=== PATIENT | male | born 1960 | race Caucasian/White ===

== ENCOUNTER 2023-04-08 10:18 | Emergency (ER) | payer MEDICARE, MEDICAID ==
[~2023-04-08] VITALS: Ht 172.7 cm; Wt 86.0 kg
[~2023-04-08 10:18] MED LIST: AMLO5TAB16 PO
[2023-04-08 10:23] VITALS: TEMP 98.1
--- NOTE | 2023-04-08 10:32 | NUR ---
PT STATES HE IS HERE FOR NERVE PAIN AND DOES NOT HAVE CARE AT HOME, PT STATES DIFFICULTY HEARING AND UNDSTANDING CAUSING FRUSTRTATION
--- NOTE | 2023-04-08 10:36 | NUR ---
PT STATES TRIED TO COMMIT SUICIDE ALONG TIME AGO AND NO RECENT ATTEMPTS
--- NOTE | 2023-04-08 10:56 | NUR ---
PT ROOM AND ENVIRONMENT NOT DONE DUE TO BEING IN FAST TRACK, PT SHOWS NO SIGNS FOR SELF HARM AND SAYS HE HAS NOT ATTEMPTED TO SUICIDE IN MANY YEARS.
[2023-04-08] MEDS ORDERED: ketorolac tromethamine 15mg/ml inj. IM ONE (12:45)
--- NOTE | 2023-04-08 12:51 | NUR ---
CALLED [facility], PT TO BE TRANSPORTED BACK BY [facility]
--- NOTE | 2023-04-08 12:54 | NUR ---
[facility] EST TIME OF ARRIVAL 15 MIN.
[2023-04-08 13:31] VITALS: BP 118/68; PULSE 77; RESP 16; O2SAT 98
== END 2023-04-08 13:32 | disposition home or self-care (01) ==
LOC: ER 10:19
DX: F91.8 Other conduct disorders (principal); E78.00 Pure hypercholesterolemia, unspecified; I10 Essential (primary) hypertension; F12.10 Cannabis abuse, uncomplicated; Z88.0 Allergy status to penicillin; Z88.5 Allergy status to narcotic agent
CPT/HCPCS: 96372; 99283; J1885; A4565

== ENCOUNTER 2023-04-30 13:45 | Emergency (ER) | payer MEDICARE, MEDICAID ==
[~2023-04-30] VITALS: Ht 182.9 cm; Wt 95.0 kg
[2023-04-30 14:22] VITALS: BP 157/103; PULSE 92; RESP 16; TEMP 98.8; O2SAT 98
[2023-04-30] MEDS ORDERED: LOSA-416 PO (18:44)
[2023-04-30] MEDS ORDERED: LOP12.5T PO (18:44)
[2023-04-30] MEDS ORDERED: CLOP-32 PO (18:44)
== END 2023-04-30 19:03 | disposition home or self-care (01) ==
LOC: ER 13:46
DX: I63.9 Cerebral infarction, unspecified (principal); I10 Essential (primary) hypertension; Z76.0 Encounter for issue of repeat prescription
CPT/HCPCS: 99281

== ENCOUNTER 2023-06-09 13:46 | Outpatient (CLI) | payer MEDICARE, MEDICAID ==
[~2023-06-09 13:46] MED LIST changes: +CLOP-32 PO; +LOP12.5T PO
== END 2023-06-09 23:59 | disposition home or self-care (01) ==
LOC: RAD 13:46
PROVIDERS: ATTEND Nurse Practitioner Family
DX: I69.391 Dysphagia following cerebral infarction (principal); R13.12 Dysphagia, oropharyngeal phase; R47.1 Dysarthria and anarthria
CPT/HCPCS: 74230

== ENCOUNTER 2023-08-04 16:13 | Emergency (ER) | payer MEDICARE, MEDICAID ==
[~2023-08-04] VITALS: Ht 188 cm; Wt 75.0 kg
[2023-08-04 16:44] VITALS: BP 191/123; PULSE 104; O2SAT 98
[2023-08-04] MEDS ORDERED: ketorolac trometh inj. 60 MG/2 ML VIAL IM ONE (16:55)
[2023-08-04 17:20] VITALS: RESP 16
[2023-08-04 17:21] VITALS: TEMP 97.8
== END 2023-08-04 17:25 | disposition home or self-care (01) ==
LOC: ER 16:14
DX: S39.012A Strain of muscle, fascia and tendon of lower back, initial encounter (principal); E78.00 Pure hypercholesterolemia, unspecified; I10 Essential (primary) hypertension; F12.90 Cannabis use, unspecified, uncomplicated; G89.29 Other chronic pain; Z98.890 Other specified postprocedural states; Z86.73 Personal history of transient ischemic attack (TIA), and cerebral infarction without residual deficits; Z88.0 Allergy status to penicillin; Z88.8 Allergy status to other drugs, medicaments and biological substances; Z79.899 Other long term (current) drug therapy; X58.XXXA Exposure to other specified factors, initial encounter; Y93.89 Activity, other specified; Y92.89 Other specified places as the place of occurrence of the external cause; Y99.8 Other external cause status
CPT/HCPCS: 96372; 99283; J1885